=== PATIENT | male | born 1965 | race Two or more races ===

== ENCOUNTER 2017-01-04 08:29 | Day surgery (SDC) | payer OTHER ==
--- NOTE | 2016-12-28 14:53 | HISTORY AND PHYSICAL E ---
History and Physical NAME: TORO LAMA : 1965 AGE: 51Y ADMITTED: 01/04/2017 ROOM: HISTORY: A 51-year-old gentleman referred to us by [facility] for colon screening. SOCIAL HISTORY: Does not smoke. Does not drink. ALLERGIES: PENICILLIN. PAST SURGICAL HISTORY: He did have upper endoscopy by Dr. Shaffer showing hiatus hernia in March 2016. REVIEW OF SYSTEMS: CARDIAC: High cholesterol. ENDOCRINE: Diabetes. RESPIRATORY: Sleep apnea, CPAP. HEENT: Eyeglasses. CARDIAC: High cholesterol. GASTROINTESTINAL: Colon screening, reflux, hiatus hernia. ONCOLOGY/HEMATOLOGY: Negative. MUSCULOSKELETAL: Back pain, disk disease. FAMILY HISTORY: Father had heart disease. Mom is alive. PHYSICAL EXAMINATION: GENERAL: Pleasant. VITAL SIGNS: Blood pressure is 140/80, pulse 80, respirations 18, temp 98. HEENT: Normal. NECK: Supple. CARDIOVASCULAR: Normal. LUNGS: Clear. ABDOMEN: Soft. NEUROLOGIC: Negative. MEDICATIONS: 1. Januvia. 2. Glimepiride. 3. Dexilant. 4. Metformin. 5. Zocor. 6. Occasional Advil. CONCLUSION: Colon screening. PLAN: Colonoscopy, admit 01/04/2017. DICTATING PHYSICIAN: KORI MUÑOZ M.D. [id number] [id number] [facility]#: [id number] ID: [id number] JOB#: [id number] ACCT: [id number] cc:[facility] KORI MUÑOZ M.D. >
[2017-01-04] MEDS ORDERED: LIDOCAINE 2% JELLY 30 ML TUBE ONE (08:31)
[2017-01-04] MEDS ORDERED: NALOXONE HCL INJ/PF 0.4 MG/1 ML SDV ONE (08:31)
[2017-01-04] MEDS ORDERED: PROMETHAZINE HCL INJ 25 MG/1 ML VIAL ONE (08:31)
[2017-01-04] MEDS ORDERED: ONDANSETRON HCL INJ/PF 4 MG/2 ML SDV ONE (08:31)
[2017-01-04] MEDS ORDERED: GLYCOPYRROLATE INJ 0.4 MG/2 ML VIAL ONE (08:32)
[2017-01-04] MEDS ORDERED: EPINEPHRINE INJ 1 MG/10 ML DISP.SYRIN ONE (08:33)
[2017-01-04] MEDS ORDERED: FENTANYL CITRATE INJ/PF 100 MCG/2 ML AMPUL ONE (08:33)
[2017-01-04] MEDS ORDERED: GLUCAGON,HUMAN RECOMB 1 MG INJ ONE (08:33)
[2017-01-04] MEDS ORDERED: FLUMAZENIL INJ 0.5 MG/5 ML VIAL IV ONE (08:33)
[2017-01-04] MEDS: MIDAZOLAM 2 MG/2 ML INJ ONE ×2 (08:58→09:04)
--- NOTE | 2017-01-04 09:48 | OPERATIVE REPORT E ---
Operative Report NAME: TORO LAMA : 1965 AGE: 51Y DATE OF SURGERY: 01/04/2017 ROOM: PREOPERATIVE DIAGNOSIS: Colon screening. POSTOPERATIVE DIAGNOSIS: External hemorrhoids, small. OPERATION: Colonoscopy. SURGEON: KORI MUÑOZ M.D. TISSUE REMOVED OR ALTERED: None. ANESTHESIA: Versed, fentanyl combination. Patient diabetic. FINDINGS: There was moderate amount of stool in the cecum. Anatomy of the cecum was within normal limits but I did not see the appendix orifice for definite. Because of the stool and I was not 100% clear on the orifice of the appendix, I recommend followup colonoscopy two years. DESCRIPTION OF PROCEDURE: Rectal examination, external hemorrhoids. Sigmoid, descending colon normal. Transverse colon normal. Ascending colon normal. Cecum normal. Unable to visualize the orifice of the appendix. Anatomy is slightly different but there is no pathology, no polyps, just I was not 100% sure about the appendix as there was moderate amount of stool so I recommend a followup colonoscopy two years. Again cecum and ascending normal, transverse, descending, sigmoid all the way to the rectum. RECOMMENDATIONS: Two year followup colonoscopy. DICTATING PHYSICIAN: KORI MUÑOZ M.D. [id number] PHY#: [id number] ID: [id number] JOB#: [id number] ACCT: [id number] cc:[facility], KORI MÑUOZ M.D. >
[2017-01-04 10:23] VITALS: BP 118/74
[2017-01-04 10:47] LABS: ABSOLUTE EOSINOPHILS # (AUTO) 0.1 10^3/uL (0.0-0.6); ABSOLUTE LYMPHOCYTES (AUTO) 1.3 10^3/uL (0.5-4.7); ABSOLUTE MONOCYTES (AUTO) 0.8 10^3/uL (0.1-1.4); ABSOLUTE NEUT (AUTO) 7.3 10^3/uL (1.7-8.2); BASOPHILS % (AUTO) 0.1 % (0-2); EOSINOPHILS % (AUTO) 1.2 % (0-6); HEMATOCRIT 40.5 % (37.9-51.0); HEMOGLOBIN 13.8 g/dL (13.5-17.0); HGB HCT DIFFERENCE 0.9; LYMPHOCYTES % (AUTO) 13.3 % (13-45); MEAN CORPUSCULAR HEMOGLOBIN 28.7 pg (27.0-33.4); MEAN CORPUSCULAR HGB CONC 34.1 g/dL (32.0-36.0); MEAN CORPUSCULAR VOLUME 84 fl (80-97); RED BLOOD COUNT 4.83 10^6/uL (4.35-5.55); RED CELL DISTRIBUTION WIDTH 12.9 % (11.5-14.0); SEGMENTED NEUTROPHILS % (AUTO) 77.4 % (42-78); WHITE BLOOD COUNT 9.4 10^3/uL (4.0-10.5)
[2017-01-04 11:00] LABS: IRON 25.6 ug/dL (49-181)
[2017-01-04 11:33] LABS: CARCINOEMBRYONIC ANTIGEN 2.1 ng/mL (<3.0)
--- NOTE | 2017-01-04 12:39 | DISCHARGE SUMMARY E ---
Discharge Summary NAME: TORO LAMA : 1965 AGE: 51Y ADMITTED: 01/04/2017 DISCHARGED: 01/04/2017 HISTORY: The patient is a 51-year-old male who presented for colon screening. Allergic to PENICILLIN. He is diabetic type 2. He does have sleep apnea. Underwent colonoscopy successful to the cecum. The anatomy of the cecum, I am unable to see the orifice of the appendix, moderate amount of stool, so we recommend followup colonoscopy 2 years. CONCLUSION: No polyps. External hemorrhoids, mild. No evidence of malignancy. No diverticulosis. Slight aberrant anatomy in the cecum. Unable to visualize the appendix, moderate amount of stool. DISCHARGE PLAN: Soft diet. I will obtain baseline CBC, CEA, iron, and consider followup colon 2 years. DICTATING PHYSICIAN: KORI MUÑOZ M.D. [id number] PHY#: [id number] ID: [id number] JOB#: [id number] ACCT: [id number] cc:[facility] KATE KORI MUÑOZ M.D. >
== END 2017-01-04 10:45 | disposition home or self-care (01) ==
LOC: END 08:29
PROVIDERS: ATTEND Specialist
PROC: 0DJD8ZZ Inspection of Lower Intestinal Tract, Via Natural or Artificial Opening Endoscopic (ICD-10-PCS; principal; 2017-01-04 09:00)
DX: Z12.11 Encounter for screening for malignant neoplasm of colon (principal); K64.4 Residual hemorrhoidal skin tags; E11.9 Type 2 diabetes mellitus without complications; E78.00 Pure hypercholesterolemia, unspecified; G47.30 Sleep apnea, unspecified; Z88.0 Allergy status to penicillin; Z79.84 Long term (current) use of oral hypoglycemic drugs; Z79.899 Other long term (current) drug therapy; Z79.1 Long term (current) use of non-steroidal anti-inflammatories (NSAID)
CPT/HCPCS: 45378; 36415; 82962; 82378; 82728; 83540; 85025; J2250; J3010; J1610; J0171; J2310; J2405; J2550; J3490